=== PATIENT | male | born 2000 | race Two or more races ===

== ENCOUNTER 2019-10-30 09:30 | Emergency (ER) | payer OTHER ==
[~2019-10-30] VITALS: Ht 177.8 cm; Wt 95.5 kg
[2019-10-30] MEDS ORDERED: LOPERAMIDE 2 MG CAPSULE PO ONE (10:00)
[2019-10-30] MEDS ORDERED: KETOROLAC 30 MG/ML VIAL. IVP ONE (10:00)
[2019-10-30] MEDS ORDERED: IV NORMAL SALINE 1,000ML 1,000 ML IV ONE (10:00)
[2019-10-30] MEDS ORDERED: ONDANSETRON PF 4 MG/2 ML VIAL. IVP ONE (10:00)
--- NOTE | 2019-10-30 10:01 | PHYS DOC ---
Adult General Chief Complaint Chief Complaint: NAUSEA/VOMITING/DIARRHEA HPI HPI 19-year-old male presents with vomiting and diarrhea for the last 3-4 days. He has been trying to deal with this at home, but the vomiting and diarrhea seem to be more persistent. The diarrhea is watery. He's having 4-5 stools a day. He's had 2 episodes of vomiting this morning. He's been unable to keep down any solid food and not very much liquid. He's had some generalized abdominal cramping, but nothing specific. It mostly hurts when he defecates. He denies fever or chills. He has had intermittent headaches. He denies unusual water sources such as a beaver or stream. He has not been camping. 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 Review of Systems Review of Systems Constitutional: Denies fever or chills [] Eyes: Denies change in visual acuity, redness, or eye pain [] HENT: Denies nasal congestion or sore throat [] Respiratory: Denies cough or shortness of breath [] Cardiovascular: No additional information not addressed in HPI [] GI: Generalized abdominal pain, nausea, vomiting, diarrhea [] : Denies dysuria or hematuria [] Musculoskeletal: Denies back pain or joint pain [] Integument: Denies rash or skin lesions [] Neurologic: Denies headache, focal weakness or sensory changes [] Endocrine: Denies polyuria or polydipsia [] All other systems were reviewed and found to be within normal limits, except as documented in this note. Current Medications Current Medications Current Medications Medications (Trade) Dose Ordered Sig/[facility] Start Time Stop Time Status Last Admin Dose Admin Ketorolac Tromethamine (Toradol 30mg Vial) 30 mg 1X ONCE 10/30/19 10:00 10/30/19 10:01 UNV Loperamide HCl (Imodium) 2 mg 1X ONCE 10/30/19 10:00 10/30/19 10:01 UNV Ondansetron HCl (Zofran) 4 mg 1X ONCE 10/30/19 10:00 10/30/19 10:01 UNV Sodium Chloride 1,000 ml @ 1,000 mls/hr 1X ONCE 10/30/19 10:00 10/30/19 10:59 UNV Allergies Allergies Allergies Coded Allergies Type Severity Reaction Last Updated Verified No Known Drug Allergies 10/30/19 No Physical Exam Physical Exam Constitutional: Well developed, well nourished, no acute distress, non-toxic appearance. [] HENT: Normocephalic, atraumatic, bilateral external ears normal, oropharynx moist, no oral exudates, nose normal. [] Eyes: PERRLA, EOMI, conjunctiva normal, no discharge. [] Neck: Normal range of motion, no tenderness, supple, no stridor. [] Cardiovascular: Heart rate regular rhythm, no murmur [] Lungs & Thorax: Bilateral breath sounds clear to auscultation [] Abdomen: Bowel sounds normal, soft, mild epigastric tenderness, no masses, no pulsatile masses. [] Skin: Warm, dry, no erythema, no rash. [] Back: No tenderness, no CVA tenderness. [] Extremities: No tenderness, no cyanosis, no clubbing, ROM intact, no edema. [] Neurologic: Alert and oriented X 3, normal motor function, normal sensory function, no focal deficits noted. [] Psychologic: Affect normal, judgement normal, mood normal. [] EKG EKG [] Radiology/Procedures Radiology/Procedures [] Impressions: EXAM: Abdomen, single view. HISTORY: Pain. COMPARISON: None. FINDINGS: Frontal views of the abdomen are obtained. There is moderate stool within the colon. There is no abnormally dilated air-filled loop of bowel to suggest obstruction. There is an incidental hypoplastic left T12 rib, a normal variant. IMPRESSION: Moderate colonic stool. No evidence of bowel obstruction. Electronically signed by: Karma Pugh MD (10/30/2019 10:28 AM) [facility] [place] DICTATED AND SIGNED BY: KARMA PUGH MD DATE: 10/30/19 1028 CC: ASHLEY BOWEN DO; PCP,UNKNOWN ~ Course & Med Decision Making Course & Med Decision Making Pertinent Labs and Imaging studies reviewed. (See chart for details) [] Dragon Disclaimer Dragon Disclaimer This electronic medical record was generated, in whole or in part, using a voice recognition dictation system. Departure Departure: Impression: Primary Impression: Constipation by delayed colonic transit Additional Impression: Nausea & vomiting Disposition: 01 HOME, SELF-CARE Condition: STABLE Referrals: PCP,UNKNOWN (PCP) Patient Instructions: Constipation, Adult, [id number], Nausea and Vomiting, Terz-[id number] Scripts Ondansetron (ONDANSETRON ODT) 4 Mg Tab.rapdis 1 TAB PO PRN Q6-8HRS PRN for VOMITING, #16 TAB Prov: ASHLEY BOWEN DO 10/30/19 Problem Qualifiers Additional Impression: Nausea & vomiting Vomiting type: unspecified Vomiting Intractability: non-intractable Qualified Codes: R11.2 - Nausea with vomiting, unspecified ASHLEY BOWEN DO Oct 30, 2019 10:01
[2019-10-30 10:24] LABS: BASO % 0 % (0-3); EOS # 0.5 x10^3/uL (0.0-0.7); EOS % 8 % (0-3); HEMATOCRIT 49.7 % (39.0-53.0); HEMOGLOBIN 16.8 g/dL (13.0-17.5); LYMPH # 2.2 x10^3/uL (1.0-4.8); LYMPH % 33 % (24-48); MEAN CORPUSCULAR HEMOGLOBIN 31 pg (25-35); MEAN CORPUSCULAR HGB CONC 34 g/dL (31-37); MEAN CORPUSCULAR VOLUME 91 fL (79-100); MONO # 0.6 x10^3/uL (0.0-1.1); MONO % 8 % (0-9); NEUT # 3.5 x10^3uL (1.8-7.7); NEUT % 52 % (31-73); PLATELET COUNT 176 x10^3/uL (140-400); RED BLOOD COUNT 5.48 x10^6/uL (4.30-5.70); RED CELL DISTRIBUTION WIDTH 12.8 % (11.5-14.5); WHITE BLOOD COUNT 6.8 x10^3/uL (4.0-11.0)
--- NOTE | 2019-10-30 10:30 | RAD ---
EXAM: Abdomen, single view. HISTORY: Pain. COMPARISON: None. FINDINGS: Frontal views of the abdomen are obtained. There is moderate stool within the colon. There is no abnormally dilated air-filled loop of bowel to suggest obstruction. There is an incidental hypoplastic left T12 rib, a normal variant. IMPRESSION: Moderate colonic stool. No evidence of bowel obstruction. Electronically signed by: Karma Pugh MD (10/30/2019 10:28 AM) [facility] [place]
[2019-10-30 10:44] LABS: CALCIUM 9.1 mg/dL (8.5-10.1); GFR 94.3; POTASSIUM 4.6 mmol/L (3.5-5.1)
[2019-10-30 10:46] LABS: ALBUMIN 4.2 g/dL (3.4-5.0); ALBUMIN/GLOBULIN RATIO 1.3 (1.0-1.7); TOTAL BILIRUBIN 0.5 mg/dL (0.2-1.0); TOTAL PROTEIN 7.5 g/dL (6.4-8.2)
[2019-10-30 11:09] VITALS: BP 115/65
[2019-10-30] MEDS ORDERED: ONDA4TAB12 PO (11:15)
== END 2019-10-30 11:26 | disposition home or self-care (01) ==
LOC: ER 09:30
DX: K59.01 Slow transit constipation (principal); K31.89 Other diseases of stomach and duodenum; R11.2 Nausea with vomiting, unspecified; R51 Headache
CPT/HCPCS: 36415; 74018; 80053; 83690; 85025; 96361; 96374; 96375; 99285; J1885; J2405; J7030